=== PATIENT | female | born 1935 | race Caucasian/White ===

== ENCOUNTER 2025-02-14 16:15 | Emergency (ER) | payer MEDICARE, OTHER, SELFPAY ==
[2025-02-14 16:17] VITALS: BP 170/94
--- NOTE | 2025-02-14 17:46 | ED.GENMED ---
History of Present Illness
General
Chief Complaint: Abdominal Symptoms
Source: patient
Exam Limitations: none
Time Seen by Provider: 02/14/25 17:38
History of Present Illness
History of Present Illness:
89-year-old female presents complaining of lower abdominal discomfort and rectal pressure. She has a remote history of using a colostomy. She typically is very regular but she has noticed that her bowel and stool have been quite hard and she had
to manually remove the stool from her ostomy. She also feels the urge to have a bowel movement through her rectum which she has not done so for years. She said she saw some discharge from her rectum. She denies vomiting or fever. No other
complaints at this time
Phy Exam
Physical Exam
Physical Exam:
General: Well-appearing female no acute respiratory distress
HEENT: Normocephalic atraumatic
Heart: Regular rate and rhythm
Lungs: Clear no wheeze
Abdomen soft ostomy present no significant tenderness
Extremities: No cyanosis
Course
Orders/Labs/Results
Orders:
Orders
02/14/25 16:24
Urinalysis Reflex To Culture Urgent
Date Specimen was Collected: 02/14/25
Time Specimen was Collected: 16:23
Urine Microscopic Reflex Cult Urgent
Urine Culture Urgent
NUVIA Source: U
Specimen Description:
Date Specimen was Collected: 02/14/25
Time Specimen was Collected: 16:23
02/14/25 17:45
CT Abd/pelvis W Iv Cont Urgent
Comment:
Reason For Exam: abdominal pain/ rectal pain
02/14/25 18:25
Complete Blood Count/With Diff Urgent
Comprehensive Metabolic Panel Urgent
Lipase Urgent
02/14/25 21:51
Phosphate Enema [Fleet Phosphate Enema-Adult] 135 ml RECTAL NOW STA
02/14/25 22:22
Phosphate Enema [Fleet Phosphate Enema-Adult] 135 ml RECTAL NOW STA
Abnormal Lab Results
02/14/25 02/14/25
16:24 18:25
WBC 13.4 H 10^3/uL
(4.8-10.8)
MCHC 32.9 L g/dL
(33.0-37.0)
Abs Immat Gran (auto) 0.1 H 10^3/uL
(0-0.05)
Absolute Neuts (auto) 10.8 H 10^3/uL
(1.4-6.5)
Absolute Monos (auto) 0.8 H 10^3/uL
(0.1-0.6)
Neutrophils % 80.8 H %
(42.2-75.2)
Lymphocytes % 11.7 L %
(20.5-51.1)
Chloride 110 H mmol/L
(98-107)
BUN 24 H mg/dl
(7-17)
Glucose 107 H mg/dl
(70-99)
Ur Occult Blood Reflex 1+ A
(Negative)
Leukocyte Esterase Rfl 1+ A
(Negative)
Urine RBC 3-6 A /HPF
(0-2)
Urine Bacteria (Reflex) Many A
(Negative)
Urine Albumin (Reflex) 2+ A
(Neg - Trace)
02/14/25 18:25
02/14/25 18:25
Vital Signs
Initial and Last Documented VS:
Initial Vital Signs
Temp Pulse Resp BP Pulse Ox
97.5 F 82 16 170/94 98
02/14/25 16:17 02/14/25 16:17 02/14/25 16:17 02/14/25 16:17 02/14/25 16:17
Last Documented Vital Signs
Temp Pulse Resp BP Pulse Ox
98.6 F 84 16 164/94 97
02/14/25 20:24 02/14/25 20:24 02/14/25 20:24 02/14/25 20:24 02/14/25 20:24
MDM/Problems Addressed
Differential Diagnosis Includes:
Increased firmness of stool in ostomy with rectal pressure. Consider constipation versus obstruction versus hemorrhoid versus proctitis
Will order CT of the abdomen and pelvis with IV contrast. Check labs
*Pulse Oximetry
SaO2: 98
Oxygen Mode of Delivery: Room air
Patient hypoxic: no
*Critical Care Note
Total Time (30-74mins, 75-104mins- exclusive of procedures): Not Applicable
Update Note
Update Note:
CT abd shows large stool in rectum. No sign of obstruction or colitis. Patient given fleets enema x 2 here. She was also manually disimpacted. Several small pieces of stool were manually removed however there was a larger harder piece that was
unable to be removed. This was mobile. I think this needs more time to soften up. She will continue with suppositories at home.
ED Attending Note
-
Portions of this chart may have been created with voice recognition software.� Occasional wrong word or��sound alike� substitutions may have occurred due to the inherent limitations of voice recognition software.
Discharge Plan
Departure
Patient Disposition: Home (Routine Discharge)
Date of Disposition: 02/14/25
Time of Disposition: 23:33
Patient with high blood pressure during this ER visit?: No
Discharge Problem:
Constipation
Instructions: Constipation, Adult (DC)
Referrals:
Carolin Parkinson MD [Family Provider, Internal Medicine]
Ryan Santana MD [Active, ColoRectal]
Activity Restrictions/Additional Instructions:
You may use fleets enema [id number]. You may also use MiraLAX to help with the hard stool coming out of your ostomy. Return here for worsening symptoms otherwise follow-up with colorectal specialist
Interventions
Interventions:
*Risk Screen - Suicide Last Done: 02/14/25 16:17
*General Assessment Last Done: 02/14/25 18:16
*Neglect/Abuse Screening Last Done: 02/14/25 16:17
*ED- Fall Risk Assessment Last Done: 02/14/25 18:16
*ED COVID-19 Vaccine History Last Done: 02/14/25 18:16
TC-Aluopa-Aqurrawopj Assessment Last Done: 02/14/25 20:26
Discharge Date and Time
Print Language: BENGALI
[2025-02-14 18:28] VITALS: BP 168/92
[2025-02-14 18:55] LABS: % Basophils 0.4 % (0-2); % Eosinophils 0.9 % (0-6); % Immature Granulocytes 0.4 % (0-0.5); % Lymphocytes 11.7 % (20.5-51.1); % Monocytes 5.8 % (1.7-9.3); % Neutrophils 80.8 % (42.2-75.2); Absolute Basophils 0.1 10^3/uL (0-0.2); Absolute Eosinophils 0.1 10^3/uL (0-0.7); Absolute Immature Granulocytes 0.1 10^3/uL (0-0.05); Absolute Lymphocytes 1.6 10^3/uL (1.2-3.4); Absolute Monocytes 0.8 10^3/uL (0.1-0.6); Absolute Neutrophils 10.8 10^3/uL (1.4-6.5); Hematocrit 41.4 % (37.0-47.0); Hemoglobin 13.6 g/dL (12.0-16.0); Mean Corp Hgb Conc. 32.9 g/dL (33.0-37.0); Mean Corpuscular Hgb 30.8 pg (27.0-31.0); Mean Corpuscular Volume 93.7 fL (81.0-99.0); Mean Platelet Volume 8.9 fL (7.4-10.4); Nucleated Red Blood Cells % 0 %; Platelet Count 353 10^3/uL (130-400); Red Blood Cell Count 4.42 10^6/uL (4.20-5.40); Red Cell Dist. Width 13.2 % (11.5-14.5); White Blood Cell Count 13.4 10^3/uL (4.8-10.8)
[2025-02-14 18:56] LABS: Urine Albumin 2+ (Neg - Trace); Urine Bilirubin Negative (Negative); Urine Character Clear (Clear); Urine Color Yellow; Urine Glucose Negative (Negative); Urine Ketone Negative (Negative); Urine Leukocyte 1+ (Negative); Urine Nitrite Negative (Negative); Urine Occult Blood 1+ (Negative); Urine Specific Gravity 1.025 (<1.030); Urine Urobilinogen Negative (Neg - 1+)
[2025-02-14 19:09] LABS: Urine Amorphous Seen; Urine Bacteria Many (Negative)
[2025-02-14 19:15] LABS: ALT (SGPT) 21 U/L (0-35); AST (SGOT) 19 U/L (14-36); Albumin 4.3 g/dl (3.5-5.0); Alkaline Phosphatase 109 U/L (38-126); Blood Urea Nitrogen 24 mg/dl (7-17); Calcium 9.4 mg/dl (8.4-10.2); Carbon Dioxide 24 mmol/L (22-30); Chloride 110 mmol/L (98-107); Estimated Creatinine Clearance 42 ml/min; Glucose 107 mg/dl (70-99); Lipase 201 U/L (23-300); Potassium 4.5 mmol/L (3.5-5.1); Sodium 142 mmol/L (135-145); Total Bilirubin 0.4 mg/dl (0.2-1.3); Total Protein 6.8 g/dl (6.3-8.2); eGFR > 60.00
[2025-02-14 20:24] VITALS: BP 164/94
[2025-02-14] MEDS: FLEET PHOSPHATE ENEMA-ADULT 135 ML RECTAL ×2 (21:58→22:26)
--- NOTE | 2025-02-14 22:04 | EDRN ---
Pt did not hold Fleets - while removing enema from rectum pt was sitting herself up to go to the bathroom. Pt sitting on toilet currently. C Verenice AGUILAR updated.
--- NOTE | 2025-02-14 22:32 | EDRN ---
Pt requested a second enema because she said she did not know she was supposed to hold it. This RN told pt multiple times she was to hold the enema as long as possible. Went in to give second enema and pt was in the bathroom. Pt returned to
stretcher and second enema administered with repeat instruction to hold it as long as possible and go to bathroom when she gets the urge. Pt held the enema no more than 1 minute and is sitting on the toilet.
[2025-02-14 23:00] VITALS: BP 162/71
== END 2025-02-15 00:25 | disposition home or self-care (01) ==
LOC: EMR 16:15
PROVIDERS: Physician Assistant; Student in an Organized Health Care Education/Training Program; EMERGENCY PHYSICIAN Emergency Medicine; FAMILY PHYSICIAN Internal Medicine Geriatric Medicine
DX: K59.00 Constipation, unspecified (principal)
CPT/HCPCS: 99284; 74177; 80053; 81003; 81015; 83690; 85025; 87086; Q9967